=== PATIENT | female | born 1985 | race Caucasian/White ===

== ENCOUNTER → 2016-06-27 | Outpatient (CLI) | payer BC | END | disposition home or self-care (01) | LOC: C.LABBC 13:41 | PROVIDERS: ATTEND Obstetrics & Gynecology | DX: Z31.41 Encounter for fertility testing (principal) ==

== ENCOUNTER → 2016-09-24 | Outpatient (CLI) | payer BC ==
[2016-09-24 09:48] LABS: HEMATOCRIT 44.6 % (37-47); MEAN CELL VOLUME 88.5 fL (80-100); MEAN CORPUSCULAR HEMOGLOBIN 29.6 pg (25-34); MEAN CORPUSCULAR HGB CONC 33.4 g/dl (32-36); MEAN PLATELET VOLUME 11.1 fL (7.4-10.4); PLATELET COUNT 196 K/uL (130-400); RED BLOOD COUNT 5.04 M/uL (4.2-5.4); WHITE BLOOD COUNT 4.43 K/uL (4.8-10.8)
[2016-09-24 10:22] LABS: RUBELLA SCREEN IgG (AT CCH) IMMUNE (IMMUNE)
--- NOTE | 2016-10-01 06:37 | CODING QUERY MEDICAL NECESSITY ---
SUPPORTING DIAGNOSIS NEEDED Dr. Scott, A supporting diagnosis is required for the test/procedure performed on this patient in order for us to be reimbursed by the patient's insurance. Please provide a supporting diagnosis for the following test/procedure listed below next to the test name along with your signature. *If there is no additional diagnosis for this patient that would support the following test/procedure please document that below next to the test/procedure. Test(s)/Procedure(s) that require a supporting diagnosis: * ([id number]) VITAMIN D ASSAY DIAGNOSIS: DATE OF SERVICE: 09/24/16 Provider Signature: Date: Thank you Obdulio Mendez [facility] Information Management Once completed, please kindly fax back to [phone] For questions please call [phone]
== END | disposition home or self-care (01) ==
LOC: C.LAB 08:24
PROVIDERS: ATTEND Specialist
DX: Z31.41 Encounter for fertility testing (principal)

== ENCOUNTER → 2016-11-05 | Outpatient (CLI) | payer BC | END | disposition home or self-care (01) | LOC: C.LAB 10:08 | PROVIDERS: ATTEND Specialist | DX: Z31.41 Encounter for fertility testing (principal) ==

== ENCOUNTER → 2016-11-13 | Outpatient (CLI) | payer BC | END | disposition home or self-care (01) | LOC: C.LAB 08:42 | PROVIDERS: ATTEND Specialist | DX: Z31.41 Encounter for fertility testing (principal) ==

== ENCOUNTER → 2016-11-19 | Outpatient (CLI) | payer BC | END | disposition home or self-care (01) | LOC: C.PAPS 09:22 | PROVIDERS: ATTEND Obstetrics & Gynecology | DX: Z01.419 Encounter for gynecological examination (general) (routine) without abnormal findings (principal) ==

== ENCOUNTER → 2016-12-09 | Outpatient (CLI) | payer BC | END | disposition home or self-care (01) | LOC: C.LAB 08:10 | PROVIDERS: ATTEND Specialist | DX: O09.00 Supervision of pregnancy with history of infertility, unspecified trimester (principal); Z3A.00 Weeks of gestation of pregnancy not specified ==

== ENCOUNTER → 2016-12-27 | Outpatient (CLI) | payer BC | END | disposition home or self-care (01) | LOC: C.LAB 07:46 | PROVIDERS: ATTEND Specialist | DX: Z31.41 Encounter for fertility testing (principal) ==

== ENCOUNTER → 2017-01-09 | Outpatient (CLI) | payer BC | END | disposition home or self-care (01) | LOC: C.LAB 09:02 | PROVIDERS: ATTEND Specialist | DX: Z31.41 Encounter for fertility testing (principal) ==

== ENCOUNTER → 2017-01-29 | Outpatient (CLI) | payer BC | END | disposition home or self-care (01) | LOC: C.LAB 07:47 | PROVIDERS: ATTEND Specialist | DX: O09.00 Supervision of pregnancy with history of infertility, unspecified trimester (principal) ==

== ENCOUNTER → 2017-01-31 | Outpatient (CLI) | payer BC | END | disposition home or self-care (01) | LOC: C.LAB 08:03 | PROVIDERS: ATTEND Specialist | DX: Z32.00 Encounter for pregnancy test, result unknown (principal) ==

== ENCOUNTER → 2017-02-03 | Outpatient (CLI) | payer BC | END | disposition home or self-care (01) | LOC: C.LAB 07:51 | PROVIDERS: ATTEND Specialist | DX: O09.00 Supervision of pregnancy with history of infertility, unspecified trimester (principal) ==

== ENCOUNTER → 2017-02-05 | Outpatient (CLI) | payer BC | END | disposition home or self-care (01) | LOC: C.LAB 07:55 | PROVIDERS: ATTEND Specialist | DX: O09.00 Supervision of pregnancy with history of infertility, unspecified trimester (principal) ==

== ENCOUNTER → 2017-02-19 | Outpatient (CLI) | payer BC | END | disposition home or self-care (01) | LOC: C.LAB 09:18 | PROVIDERS: ATTEND Specialist | DX: Z32.00 Encounter for pregnancy test, result unknown (principal) ==

== ENCOUNTER → 2017-05-06 | Outpatient (CLI) | payer BC | END | disposition home or self-care (01) | LOC: C.LAB 08:04 | PROVIDERS: ATTEND Specialist | DX: O09.00 Supervision of pregnancy with history of infertility, unspecified trimester (principal); Z3A.00 Weeks of gestation of pregnancy not specified ==

== ENCOUNTER → 2017-08-08 | Outpatient (CLI) | payer OTHER | END | disposition home or self-care (01) | LOC: C.LAB1850 07:12 | PROVIDERS: ATTEND Specialist | DX: O09.00 Supervision of pregnancy with history of infertility, unspecified trimester (principal) ==

== ENCOUNTER → 2017-08-11 | Outpatient (CLI) | payer OTHER | END | disposition home or self-care (01) | LOC: C.LAB 08:07 | PROVIDERS: ATTEND Specialist | DX: O09.00 Supervision of pregnancy with history of infertility, unspecified trimester (principal) ==

== ENCOUNTER → 2017-09-10 | Outpatient (CLI) | payer OTHER | END | disposition home or self-care (01) | LOC: C.LABSPEC 17:39 | PROVIDERS: ATTEND Obstetrics & Gynecology | DX: O09.811 Supervision of pregnancy resulting from assisted reproductive technology, first trimester (principal) ==

== ENCOUNTER 2022-08-28 11:05 | Inpatient (IN) ==
[2022-08-28] MEDS ORDERED: LIDOCAINE 1% LOCAL 20 ML VIAL INFIL PRN (13:32)
[2022-08-28] MEDS ORDERED: SODIUM CHLORIDE 0.9% 250 ML IV PRN (13:32)
[2022-08-28] MEDS ORDERED: OXYTOCIN 30 UNITS/500 ML BAG IV PRN ×2 (13:32→13:34)
--- NOTE | 2022-08-28 13:34 | History & Physical Report ---
Date of Service August 28, 2022 Assessment & Plan (1) resulting from in vitro fertilization, antepartum: Plan: 36 yo at 40wga admitted for term IOL VSS Fetus cat 2 but reassuring Labor - will start w/ pit thakur once admitted GBS neg epidural prn History of Present Illness Chief Complaint: prolonged monitoring, iol Primary Care Provider: NO PCP 36 yo at 40 wga presented for prolonged monitoring after decels in the office. Was seen for NST due to IVF/ICSI and planned visit prior to IOL t omorrow. Few late decels were noted and so she was sent for monitoring. +FM; denies regular ctx, LOF, VB. No further lates noted and tracing became reactive however there were a few variables noted and few areas of questionable variables vs strong FM. Given GA was recommended to initiate induction now PNI: IVF/ICSI Hx PPH 2/2 retained placenta and required transfusion Past [employer] Hx: G1 SAB G2 2018 at 37 wks, retained placenta requiring D&C, transfusion G3 current regular cycles 07/2020 neg cotest denies hx STIs Allergies Allergy/AdvReac Type Severity Reaction Status Date / Time No Known Allergies Allergy Verified 08/28/22 11:25 Home Medications Medication Instructions Recorded Confirmed Type prenat.vits,mohit,cpc-delc-svkzl 1 tab PO DAILY 01/24/22 08/28/22 History Patient History Medical History (Updated 08/28/22 @ 11:23 by Diane Norton, LANI) Endometriosis In vitro fertilization IVF ICSI [place] Spontaneous SAB- no intervention Tubal ovarian abscess early 20s Surgical History History of laparoscopy Right ovary and tube removal in 2013 [place] teeth extracted Family History Other Cancer Hypothyroid Social History (Updated 08/28/22 @ 11:24 by Diane Norton, RN) Smoking Status: Never smoker Second Hand Exposure: No; Hx Alcohol Use: No Hx Substance Use: No Preferred Language: Citizen Of [place] Communication Ability: Effective 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 current occupational status: employed current occupation: IT tray line worker. Feels Safe at Home: Yes Safety Concerns: Feels Safe At This Time Assistive Devices: None Physical Exam Genitourinary: OB Exam Abdomen: + vertex and + estimated weight (7-8) Manual OB Exam: + cervical dilation (1.5), + cervical effacement 50% and + station -2 OB Exam Monitor Tracing: + external FHT monitor used, + external uterine monitor used (irreg) and + category II (145/mod/+accel/intermittent variables) Results & Data Vital Signs (Past 12 Hours) Vital Signs Temp Pulse Resp BP 08/28/22 11:20 98.1 F 16 08/28/22 11:18 103 H 131/82 Laboratory Results OB Labs: Blood Type O Positive 02/27/22 Antibody Screen NEGATIVE 02/27/22 Hemoglobin 12.3 g/dl (12.0-16.0) 06/04/22 Hematocrit 37.7 % (34.1-44.9) 06/04/22 Mean Corpuscular Volume 84.2 fL (80.0-100.0) 02/27/22 Platelet Count 241 K/uL (130-400) 02/27/22 Rubella IgG Antibody Immune (Immune) 02/27/22 Rapid Plasma Reagin Nonreactive (Nonreactive) 02/27/22 Hepatitis B Surface Antigen Neg (Neg) 09/13/20 Hepatitis B Surface Antigen. NON-REACTIVE (NON-REACTIVE) 02/27/22 Hepatitis C Antibody Neg (Neg) 09/13/20 Hepatitis C Antibody (EIA) NON-REACTIVE (NON-REACTIVE) 02/27/22 HIV (1&2) Ab and P24 Ag, 4th Gener Neg (Neg) 09/13/20 HIV (1&2) Ag and Ab Confirmation NON-REACTIVE (NON-REACTIVE) 02/27/22 Glucose 1 Hour 50 gm Load 114 mg/dl (70-130) 06/04/22 OB Optional Labs: Chlamydia trachomatis RNA Not Detected (NotDetected) 01/31/22 F Neisseria gonorrhoeae RNA Not Detected (NotDetected) 01/31/22 Thyroid Stimulating Hormone (TSH) 1.590 uIu/ml (0.300-4.500) 09/13/20 Labs Reviewed: Declines msafp--mln GBS neg Diagnostic Findings 08/01 EFW 67%, R ant plac Coding Level of Care Code None Diagnoses resulting from in vitro fertilization, antepartum O09.819
[2022-08-28 14:29] LABS: Hematocrit (blood only) 40.8 % (37.0-47.0); Hemoglobin 13.9 g/dl (12.0-16.0); Mean Corpuscular Hgb Conc 34.1 g/dL (32.0-36.0); Mean Corpuscular Volume 85.2 fL (80.0-100.0); Mean Platelet Volume 11.8 fL (9.4-12.4); Platelet Count 180 K/uL (130-400); RDW Coefficient of Variation 13.3 % (11.5-14.5); RDW Standard Deviation 41.6 fL (36.4-46.3); Red Blood Count 4.79 M/uL (4.20-5.40); White Blood Count 12.28 K/ul (4.8-10.8)
[2022-08-28] MEDS: LACTATED RINGER'S 1,000 ML IV PRN ×2 (14:50→20:22)
[2022-08-28] MEDS ORDERED: BUPIVACAINE 0.25% PF 30 ML VIAL ONE (20:08)
[2022-08-28] MEDS ORDERED: SODIUM CHLORIDE 0.9% PF INJ 10 ML VIAL ONE (20:08)
[2022-08-28] MEDS ORDERED: fentaNYL citrate PF 100 MCG/2 ML VIAL ONE (20:08)
[2022-08-28] MEDS ORDERED: ePHEDrine sulfate 50 MG/ML AMP ONE (20:08)
[2022-08-28] MEDS ORDERED: LIDOCAINE 2%/EPINEPHRINE 1:200,000 20 ML PF ONE (20:09)
[2022-08-28] MEDS ORDERED: fentaNYL 2MCG/ML ROPIVACAINE 1.25MG/ML 100 ML BAG EPI ONE (20:09)
[2022-08-28] MEDS ORDERED: ePHEDrine sulfate 50 MG/ML AMP IV PRN (20:29)
[2022-08-28] MEDS ORDERED: NALOXONE HCL 0.4 MG/1 ML VIAL/CARP IV PRN (20:29)
[2022-08-28] MEDS ORDERED: ONDANSETRON INJ 2 MG/ML 2 ML VIAL IV PRN (20:29)
[2022-08-28] MEDS ORDERED: diphenhydrAMINE 50 MG/ML VIAL IV PRN (20:29)
[2022-08-28] MEDS ORDERED: NALOXONE HCL 1 MG in SODIUM CHLORIDE 0.9% 1000ML 1,000 ML IV PRN (20:29)
[2022-08-28] MEDS ORDERED: fentaNYL 2MCG/ML ROPIVACAINE 1.25MG/ML 100 ML BAG EPI PRN (20:29)
[2022-08-28] MEDS ORDERED: NALBUPHINE HCL INJ 10 MG/ML AMP IV PRN (20:29)
--- NOTE | 2022-08-28 20:29 | Anesthesiology Consultation ---
Date of Service August 28, 2022 Assessment & Plan ASA ASA2 Proposed Anesthesia Anesthesia Type: Labor Epidural Risk / Benefits Reviewed With: PT / POA / Parent / Guardian, Accepts Plan and Informed Consent Obtained History Height/Weight Height: 5 ft 6 in Weight: 79.832 kg Allergies Allergy/AdvReac Type Severity Reaction Status Date / Time No Known Allergies Allergy Verified 08/28/22 11:25 Medications Home Medications Medication Instructions Recorded Confirmed Last Taken prenat.vits,mohit,zel-izxa-edyql 1 tab PO DAILY 01/24/22 08/28/22 08/27/22 Active Medications Generic Name Dose Route Start Last Admin Trade Name Freq PRN Reason Stop Dose Admin Lactated Ringer's 1,000 mls @ 125 mls/hr 08/28/22 13:32 08/28/22 20:22 Lr IV 08/30/22 13:31 125 mls/hr .Q8H PRN Administration L&D Protocol Protocol Oxytocin 30 units in 500 mls @ 10 mls/hr 08/28/22 13:34 08/28/22 19:20 Pitocin IV 08/30/22 13:33 0.6 units/hr .Q24H PRN 10 mls/hr Labor Induction/Augmentation Titration Protocol 0.6 UNITS/HR Past Medical History Medical History Endometriosis In vitro fertilization IVF ICSI [place] Spontaneous SAB- no intervention Tubal ovarian abscess early 20s Exercise / Class Metabolic Activity II 4-5 Yardwork/Stairs/Walk up hill Past Family History Family History Other Cancer Hypothyroid Past Surgical History Surgical History History of laparoscopy Right ovary and tube removal in 2014 [place] teeth extracted Past Anesthesia History No Hx of Anesthesia Complications and No Family Hx of Anesthesia Complications History of PONV No Hx of PONV and No Hx of Motion Sickness Social History Smoking Status: Never smoker Hx Alcohol Use: No Hx Substance Use: No substance use type: does not use Review of Systems denies fever/cough/ colds/ chest pain/ SOB/ FRANK denies FRANK Physical Exam Vital Signs Last Vital Signs Temp 36.7 C 08/28/22 15:00 Pulse 68 08/28/22 21:09 Resp 18 08/28/22 15:00 BP 102/57 L 08/28/22 21:09 Pulse Ox 98 08/28/22 21:09 ENMT Mouth: no TMJ abnormality and no dentition abnormality Thyromental Distance: > or= 3.5 Finger Breadths Mallampati Class: II Neck neck extension not limited Respiratory normal respiratory effort; no respiratory distress Auscultation: lungs clear to auscultation bilaterally Cardiovascular Rate/Rhythm: regular rate and regular rhythm Neurologic moves all extremities Psychiatric Orientation: alert and oriented x 3 Testing Laboratory Results 08/28/22 13:58 Blood Type O Positive 08/28/22 13:58 Antibody Screen NEGATIVE 08/28/22 13:58
--- NOTE | 2022-08-28 21:38 | Labor Progress Brief Note ---
Date of Service August 28, 2022 Subjective comfortable w/ epidural Assessment & Plan (1) resulting from in vitro fertilization, antepartum: Plan: 36 yo at 40wga admitted for term IOL VSS Fetus cat 2 but reassuring Labor - thakur out and now s/p arom since comfortable. Continue induction GBS neg epidural in place Admission and Anticipated Discharge Date Admission Date: August 28, 2022 Physical Exam Genitourinary: Manual OB Exam: + cervical dilation 4 cm, + cervical effacement 70%, + station -2 and + amniotic fluid (arom clear) OB Exam Monitor Tracing: + external FHT monitor used, + external uterine monitor used (q3) and + category II (145/mod/+accel/intermittent variables) Results & Data Vital Signs (Past 12 Hours) Vital Signs Temp Pulse Resp BP Pulse Ox 08/28/22 11:20 98.1 F 16 08/28/22 21:34 71 99 08/28/22 21:29 63 100 08/28/22 21:24 99 08/28/22 21:24 79 08/28/22 21:24 68 99/54 L 08/28/22 21:19 97 08/28/22 21:19 80 08/28/22 21:19 75 97/56 L 08/28/22 21:14 72 100/57 L 97 08/28/22 21:09 98 08/28/22 21:09 68 08/28/22 21:09 66 102/57 L 08/28/22 21:05 73 108/58 L 08/28/22 21:04 74 99 08/28/22 20:59 105 H 98 08/28/22 20:58 88 113/64 08/28/22 20:56 93 H 127/71 08/28/22 20:54 101 H 98 08/28/22 20:51 92 H 128/75 08/28/22 20:49 109 H 99 08/28/22 20:44 89 99 08/28/22 20:39 120 H 99 08/28/22 20:34 88 97 08/28/22 20:29 82 98 08/28/22 20:24 88 99 08/28/22 20:19 94 H 98 08/28/22 20:14 90 98 08/28/22 20:09 85 98 08/28/22 20:04 103 H 97 08/28/22 20:01 98 H 139/91 08/28/22 19:04 90 137/76 08/28/22 18:53 81 123/77 08/28/22 17:51 81 120/75 08/28/22 16:51 93 H 122/78 08/28/22 15:51 106 H 124/78 08/28/22 15:00 18 08/28/22 15:00 98.1 F 18 08/28/22 14:51 86 125/80 08/28/22 11:18 103 H 131/82 Coding Level of Care Code None Diagnoses resulting from in vitro fertilization, antepartum O09.819
[2022-08-29] MEDS ORDERED: ACETAMINOPHEN 325 MG TAB PO PRN (02:36)
[2022-08-29] MEDS ORDERED: BENZOCAINE 20% AER SPR 82.5 GM CAN EXT PRN (02:36)
[2022-08-29] MEDS ORDERED: OXYTOCIN 30 UNITS/500 ML BAG IV PRN (02:36)
[2022-08-29] MEDS ORDERED: DIPHTHERIA/TETANUS/PERTUSSIS 0.5mL SYR/VIAL (Age 7+yrs) IM ONE (02:36)
[2022-08-29] MEDS ORDERED: HYDROCORTISONE ACETATE 25 MG SUPP PR PRN (02:36)
--- NOTE | 2022-08-29 02:39 | Delivery Summary ---
Vaginal Delivery Summary Date of Service August 29, 2022 Vaginal Delivery Summary PREOPERATIVE DIAGNOSIS: 1. Single intrauterine at 40 1/7 wga 2. Non-reassuring testing 3. IVF/ICSI 4. Hx PPH due to retained placenta POSTOPERATIVE DIAGNOSIS: 1. Single intrauterine at 40 1/7 wga 2. Non-reassuring testing 3. IVF/ICSI 4. Hx PPH due to retained placenta 5. Delivered PROCEDURE: 1. Normal spontaneous vaginal delivery. 2. Manual extraction of placenta SURGEON: Ursula Villarreal MD ANESTHESIA: Epidural. ESTIMATED BLOOD LOSS: 400 mL FLUIDS: Continuous LR. URINE OUTPUT: None. COMPLICATIONS: None. CONDITION: Stable. INDICATIONS: 36 yo at 40 1/7 wga presented for prolonged monitoring due to late decels in office. She was monitored and tracing did improve with intermittent variables noted. Given GA, was recommended to begin induction today. Thakur balloon and pit were started. Following thakur expulsion, she received an epidural and underwent arom. She then progressed to complete and desired to push. FINDINGS: A viable female infant, weight pending with Apgars of 8 and 9 at 1 and 5 minutes respectively. SPECIMEN: Cord blood, placenta OPERATIVE REPORT: The patient progressed to 10 cm, 100% effaced and +2 station, pushed over intact perineum with anesthesia to deliver a viable female , weight and Apgars as above. Head of delivered in ANA position. Tight nuchal/body cord was noted and delivered through after head re-restituted to ERIKA. Body and shoulders were delivered without difficulty. was delivered to maternal abdomen and nursing staff. Delayed cord clamping was delayed due to not being vigorous. Cord was clamped and cut. Cord blood was obtained. Placenta did not deliver spontaneously after approx 25 min and so manual extraction was discussed and performed. Cervix had begun to get tighter but I was able to develop a plane and extract placenta. Additional sweep revealed 2 small cotyledons removed. At this point, examination of placenta revealed it to be intact, additional sweep revealed no further retained placenta. IV oxytocin and fundal massage were given for excellent hemostasis. Vagina, cervix, perineum were inspected. A left labial abrasion was noted but not needed to be repaired. Sponge and needle counts correct x2. No sponges were left behind. Mother and stable in immediate period. Will get ancef x 24hrs due to manual extraction [facility] Vaginal Delivery Charge Vaginal Delivery Codes: 84007 global code for the antepartum, delivery, and post- Delivery Type Details:
[2022-08-29] MEDS: ceFAZolin 2000MG 2,000 MG/15 ML SYR IV SCH ×3 (03:01→20:08)
--- NOTE | 2022-08-29 03:07 | Anesthesia Procedure Note ---
Date of Service August 29, 2022 Anesthesia Post Epidural Note Vital Signs Vital Signs: Temp Pulse Resp BP Pulse Ox 37.1 C 129 H 18 138/71 94 08/29/22 02:25 08/29/22 02:55 08/29/22 02:40 08/29/22 02:55 08/29/22 02:27 Notes Mental Status: alert / awake / arousable and participated in evaluation Nausea / Vomiting: adequately controlled Pain: adequately controlled Airway Patency, RR, SpO2: stable & adequate BP & HR: stable & adequate Hydration State: stable & adequate Neuraxial Anesthesia: was administered and sensory block is resolving Anesthetic Complications: no major complications apparent and Pt Satisfied with anesthetic care Epidural: Removed without complications and With tip intact
[2022-08-29] MEDS: IBUPROFEN 600 MG TAB PO PRN ×4 (05:58→23:07)
[2022-08-29] MEDS: DOCUSATE SODIUM 100 MG CAP PO SCH ×2 (08:59→20:08)
[2022-08-29] MEDS: FERROUS SULFATE 325 MG TAB PO SCH (08:59)
[2022-08-29] MEDS: PRENATAL VITAMIN 1 TAB PO SCH (08:59)
--- NOTE | 2022-08-30 06:17 | Obstetrical Progress Note ---
Date of Service August 30, 2022 Assessment & Plan (1) Routine gynecological examination: (2) resulting from in vitro fertilization, antepartum: (3) Encounter for supervision of normal in multigravida, antepartum: Plan Macey is a 36 y/o female who is PPD #1 following delivery at 40 weeks. -Meeting all milestones -Vitals reviewed and WNL -O+/GBS negative/Rubella Immune -Follow up in 6 weeks for appointment -Continue routine care -Plan for d/c today Admission and Anticipated Discharge Date Admission Date: August 28, 2022 Supervising Physician Co-Signing Physician Notes Resident Physician Supervision Note: I interviewed and examined the patient. Discussed with Dr. Marina and agree with findings and plan as documented in the note. Any exceptions or clarifications are listed here: doing well, desires DC, reviewed instructions. Documented By: Antionette Calixto, DO Subjective Macey is a 36 y/o female who is PPD #1 following delivery at 40 weeks. She required manual extraction and subsequently received Ancef. She reports feeling well overall this morning. Notes some abdominal cramping but pain well managed on analgesics. Voiding without issue. Tolerating meals overnight and abl e to ambulate some. Has some persistent lochia with some improvement this morning. Currently breast feeding. Feels that things are going well and would like to discharge home later today. Review of Systems Constitutional: no fever, no chills and no sweats Respiratory: no cough, no dyspnea and no wheezing Cardiovascular: no chest pain, no palpitations and no calf pain Genitourinary: no dysuria Neurologic: no headache(s) Physical Exam Constitutional: WD/WN, vitals as above no acute distress Respiratory: no respiratory distress Auscultation: lungs clear to auscultation bilaterally; no rales, no rhonchi and no wheezes Cardiovascular: RRR, no murmur, no edema Extremities: no calf tenderness and no edema Negative Mare's sign bilaterally. Gastrointestinal (Abdomen): Inspection/Auscultation: normal bowel sounds Genitourinary: Uterine fundus firm, palpable below the umbilicus. Results & Data Vital Signs (Past 12 Hours) Vital Signs Temp Pulse Resp BP O2 Del Method 08/29/22 23:03 36.5 C 97 H 18 120/80 Room Air 08/29/22 20:20 36.5 C 103 H 18 124/76 Room Air Resident Activity Tracking Resident Involvement: Resident Care Provided Care Provided: OB Delivery
[2022-08-30 06:22] LABS: Hematocrit (blood only) 31.1 % (37.0-47.0); Hemoglobin 10.4 g/dl (12.0-16.0); Mean Corpuscular Hemoglobin 29.5 pg (25.0-34.0); Mean Corpuscular Hgb Conc 33.4 g/dL (32.0-36.0); Mean Corpuscular Volume 88.4 fL (80.0-100.0); Mean Platelet Volume 11.7 fL (9.4-12.4); Platelet Count 172 K/uL (130-400); RDW Coefficient of Variation 13.6 % (11.5-14.5); RDW Standard Deviation 43.9 fL (36.4-46.3); Red Blood Count 3.52 M/uL (4.20-5.40); White Blood Count 13.62 K/ul (4.8-10.8)
[2022-08-30] MEDS: PRENATAL VITAMIN 1 TAB PO SCH (09:10)
[2022-08-30] MEDS: IBUPROFEN 600 MG TAB PO PRN (09:10)
[2022-08-30] MEDS: DOCUSATE SODIUM 100 MG CAP PO SCH (09:10)
[2022-08-30] MEDS: FERROUS SULFATE 325 MG TAB PO SCH (09:10)
[2022-08-30] MEDS ORDERED: bisacodyL 5 MG TABEC PO SCH (20:00)
[2022-08-31] MEDS ORDERED: bisacodyL 10 MG SUPP PR PRN
== END 2022-08-30 13:15 | disposition home or self-care (01) | DRG 807 ==
LOC: OPB 11:05 → 4S1 11:07 → 4E2 08-29 05:14